=== PATIENT | male | born 1955 | race American Indian/Alaskan Native ===

== ENCOUNTER 2022-08-20 06:24 | Day surgery (SDC) | payer MEDICARE, OTHER ==
[~2022-08-20] VITALS: Ht 180.3 cm; Wt 92.0 kg
[~2022-08-20 06:24] MED LIST: ALFALFA250 MG PO; ASPIR 8181 MG PO; CELEBREX200 MG PO; CIPRO500 MG PO; CO-ENZYME Q101 EACH PO; FIBER500 MG PO; HYDROCODON-ACE1 EA11 PO; IBUPROFEN800 MG PO; NORCO 5-325 TA1 EACH PO; OMEPRAZOLE20 MG PO; ROSUVASTATIN CAL5 MG PO; VITAMIN E100 UNI3 PO
--- NOTE | 2022-08-20 08:02 | NUR ---
08/20/22 0802 Triny Copeland 1129-PATIENT ARRIVED TO PACU ON 2L NC RR EVEN. REACTIVE TO VERBAL STIMULI REMAINS VERY DROWSY KEEPING EYES CLOSED. IVF INFUSING. PATIENT LAYING LEFT LATERAL ABDOMEN SOFT. PATIENT SLEEPING.
--- NOTE | 2022-08-20 09:13 | NUR ---
904-PATIENT BACK TO ROOM FROM PACU ON . RECEIVED REPORT FORM KEVIN BOND. PATIENT IS VERY DROWSY. ANSWERES QUESTIONS BUT FALLS BACK ASLEEP EASILY. REPORTS ABDOMINAL DISCOMFORT. ENCOURAGED PATEINT TO PASS GAS TO EASE THE DISCOMFORT. AT BEDSIDE TALKING TO PATIENT. CALL LIGTH WITHIN REACH.
--- NOTE | 2022-08-20 16:05 | NUR ---
PT ALERT, ORIENTED AND SUPPORTED BY HIS . PT HAD HAD SCOPE PREVIOUS, ALL QUESTIONS ASKED ANSWERED. PT REQUESTED PRAYER, WILL RETURN FOR DC.
--- NOTE | 2022-08-21 08:26 | OR ---
[facility] [address], [place] [address] Signed DATE OF OPERATION: 08/20/2022 SURGEON: Ann-Marie Bloom MD PREOPERATIVE DIAGNOSES: 1. Guaiac-positive stool. 2. Unremarkable colonoscopy in 2009 at age 55. POSTOPERATIVE DIAGNOSES: 1. Brxgmqr-cj-mdmthgeb sigmoid diverticulosis. 2. A 4 mm polyp at 22 cm (sigmoid colon). 3. Pidvcvi-so-uczuqciy internal hemorrhoids. PROCEDURE: Colonoscopy with hot biopsy. ESTIMATED BLOOD LOSS: None. INDICATIONS: Andre is a 67-year-old gentleman, who had undergone screening colonoscopy with Dr. Brody around age 55 in 2009, to his knowledge that was negative. He has no lower GI complaints. There is no family history of colon cancer or polyps. Recently, his stool sample came back positive. He has been asked to see me for followup colonoscopy. In the office, I gave him a pamphlet on colonoscopy. We had discussed the nature of the test along with the risks including, but not limited to gas bloating, crampy abdominal pain, bleeding, perforation requiring surgery, and missed diagnosis. We also discussed the need for IV conscious sedation. He had expressed understanding and wished to proceed. DESCRIPTION OF PROCEDURE: Andre was taken into our endoscopy suite and placed in the left lateral decubitus position. He was given 6 mg of Versed and 125 mcg of fentanyl to cover the case. A digital rectal exam was performed and this was unremarkable. He had no external hemorrhoids. Good sphincter tone. We did not specifically palpate the prostate gland. The adult colonoscope had been introduced and advanced around into the cecum under direct visualization of camera. It took extra sedation and some abdominal compression in order to get through the sigmoid colon. His prep was quite excellent. We could easily see the appendiceal orifice and ileocecal valve. We had taken pictures throughout for photodocumentation. The scope was then slowly withdrawn. He does have Electronically Signed By: ANN-MARIE BLOOM MD 08/21/22 0826 PATIENT NAME: ANDRE LÓPEZ OPERATIVE REPORT DATE OF : 55 REPORT #: [id number] PHYSICIAN: ANN-MARIE BLOOM MD PCP: RAKESH LA MD REPORT IS CONFIDENTIAL AND NOT TO BE RELEASED WITHOUT AUTHORIZATION [address] [address] Signed diverticula in the sigmoid colon. They were fuvjqye-dk-bncoiwza in size, buaretu-hw-ccocpffl in number, and scattered about. He had just a small 4 mm polyp at 22 cm in his distal sigmoid colon. It was easily removed with a hot biopsy forceps. The rectum was unremarkable. Upon retroflexion of scope, he has bpaajtr-og-zjotfsua internal hemorrhoid columns. After this, the gas was suctioned out. The colonoscope removed. Andre tolerated the procedure quite well. RECOMMENDATIONS: I will see Andre back in my office in 7 to 10 days to review his results. Ann-Marie Bloom MD ALB/ERINL /[id number] cc: Patient Chart [facility] Ann-Marie Bloom MD Copies: [facility] ANN-MARIE BLOOM MD ~ Electronically Signed By: ANN-MARIE BLOOM MD 08/21/22 0826 PATIENT NAME: ANDRE LÓPEZ OPERATIVE REPORT DATE OF : 55 REPORT #: [id number] PHYSICIAN: ANN-MARIE BLOOM MD PCP: RAKESH LA MD REPORT IS CONFIDENTIAL AND NOT TO BE RELEASED WITHOUT AUTHORIZATION
== END 2022-08-20 09:50 | disposition home or self-care (01) ==
LOC: OPS 06:24 → DS 06:24 → OPS 07:30
PROVIDERS: ATTEND Colon & Rectal Surgery
PROC: 0DBN8ZZ Excision of Sigmoid Colon, Via Natural or Artificial Opening Endoscopic (ICD-10-PCS; principal; 2022-08-20 07:30)
DX: K63.5 Polyp of colon (principal); K64.8 Other hemorrhoids; K57.30 Diverticulosis of large intestine without perforation or abscess without bleeding; K21.9 Gastro-esophageal reflux disease without esophagitis
CPT/HCPCS: 88305; 99153; G0500; J2250; J3010; J7121

== ENCOUNTER 2022-11-17 10:04 | Emergency (ER) | payer MEDICARE, OTHER ==
[~2022-11-17] VITALS: Ht 182.9 cm; Wt 91.6 kg
[~2022-11-17 10:04] MED LIST changes: +LIPITOR80 MG GT
--- OUTSIDE RECORDS SUMMARY | 2022-11-17 10:07 | XMS ---
PreManage Notification: NATTY LÓPEZ Security Electronic [employer]athering Camera Person Events No recent Security Events currently on file CRITERIA MET - [facility] - 2 Visits in 30 Days CARE PROVIDERS There are no care providers on record at this time. Jonathan has no Care Guidelines for this patient. [facility]12 MO[facility] NOTE: Visits indicate total known visits. ED/C VISIT TRACKING (12 MO.) 11/17/2022 10:[address] [facility] TYPE: Emergency COMPLAINT: - POSS STROKE 11/13/2022 13:[address] [facility] TYPE: Emergency COMPLAINT: - POSS STROKE DIAGNOSES: - Essential (primary) hypertension - Other nursing home (current) drug therapy - Facial weakness - Contact with and (suspected) exposure to COVID-19 - Other nonmedicinal substance allergy status - Allergy status to penicillin - Allergy status to other drugs, medicaments and biological substances - Cerebral infarction, unspecified INPATIENT VISIT TRACKING (12 MO.) No inpatient visits to display in this time frame [email or web address]
[2022-11-17] MEDS ORDERED: ASPIRIN81 MG PO (10:20)
[2022-11-17] MEDS ORDERED: PREDNISONE20 MG PO (10:38)
[2022-11-17] MEDS ORDERED: VALACYCLOVIR1000 MG PO (10:38)
== END 2022-11-17 10:49 | disposition home or self-care (01) ==
LOC: ED 10:04
DX: G51.0 Bell's palsy (principal); E78.00 Pure hypercholesterolemia, unspecified; K21.9 Gastro-esophageal reflux disease without esophagitis; Z88.0 Allergy status to penicillin; Z88.8 Allergy status to other drugs, medicaments and biological substances; Z91.018 Allergy to other foods; Z79.899 Other long term (current) drug therapy; Z79.82 Long term (current) use of aspirin
CPT/HCPCS: 99284-25; A9270; J7512